=== PATIENT | female | born 1970 | race African-American/Black ===

== ENCOUNTER → 2016-10-18 | Outpatient (CLI) | payer OTHER ==
--- NOTE | ~2016-10-18 | CR127 ---
[facility]. [facility] A Service of [facility] & [facility] RADIOLOGY TEXT RESULTS PATIENT: ANU ACUNA LOCATION: [facility] : 70 UNIT #: [id number] AGE: [address]: Gilmar Hook MD SEX: F ORDER DR: [id number] [address] [address] [id number] O MR#: [id number] Acc #: [id number] NAME: ANU ACUNA : 1970 SEX: F STUDY DATE/TIME: 10/18/2016 11:46 UNIT: [facility] ROOM: STUDY DESCRIPTION: CR Foot Complete Min 3 View Rt Attending Physician: Gilmar Hook M.D. Referring Physician: Gilmar Hook M.D. Ordering Physician: Gilmar Hook M.D. Primary Care Physician: Gilmar Hook M.D. MEDICAL IMAGING REPORT This report is preliminary unless electronic signature is present. EXAM Right foot, 3 views. HISTORY 46-year-old female with right foot pain for 8 months. COMPARISON STUDIES No comparisons. FINDINGS Minimal degenerative change at the MTP joint. No fracture or dislocation. No erosive changes. Soft tissue structures are unremarkable. IMPRESSION Minimal degenerative changes at the first MTP joint. Otherwise, unremarkable. Dictated by... Josh Vidal M.D. THIS IS AN ELECTRONICALLY VERIFIED REPORT Josh Vidal M.D. at 10/19/2016 8:39 AM GAMALIEL/michael TD: 10/18/2016 19:07 JOB #: [id number] MEDICAL IMAGING REPORT Page 1 of 1
--- NOTE | ~2016-10-18 | CR126 ---
[facility]. [facility] A Service of [facility] & [facility] RADIOLOGY TEXT RESULTS PATIENT: ANU ACUNA LOCATION: [facility] : 70 UNIT #: [id number] AGE: [address]: Gilmar Hook MD SEX: F ORDER DR: [id number] [address] [address] [id number] O MR#: [id number] Acc #: [id number] NAME: ANU ACUNA : 1970 SEX: F STUDY DATE/TIME: 10/18/2016 11:46 UNIT: [facility] ROOM: STUDY DESCRIPTION: CR Foot Complete Min 3 View Lt Attending Physician: Gilmar Hook M.D. Referring Physician: Gilmar Hook M.D. Ordering Physician: Gilmar Hook M.D. Primary Care Physician: Gilmar Hook M.D. MEDICAL IMAGING REPORT This report is preliminary unless electronic signature is present. EXAM Left foot 3 views INDICATION 46-year female with left foot pain for 3 months. COMPARISON No comparisons. FINDINGS Minimal degenerative change at the first MTP joint. No evidence of fracture. No erosive changes. No dislocation. IMPRESSION Minimal degenerative change of the first MTP joint. Dictated by... Josh Vidal M.D. THIS IS AN ELECTRONICALLY VERIFIED REPORT Josh Vidal M.D. at 10/19/2016 8:39 AM GAMALIEL/tawanna TD: 10/18/2016 19:05 JOB #: [id number] MEDICAL IMAGING REPORT Page 1 of 1
--- NOTE | ~2016-10-18 | CR21 ---
[facility]. [facility] A Service of [facility] & [facility] RADIOLOGY TEXT RESULTS PATIENT: ANU ACUNA LOCATION: [facility] : 70 UNIT #: [id number] AGE: [address]: Gilmar Hook MD SEX: F ORDER DR: [id number] [address] [address] [id number] O MR#: [id number] Acc #: [id number] NAME: ANU ACUNA : 1970 SEX: F STUDY DATE/TIME: 10/18/2016 11:46 UNIT: [facility] ROOM: STUDY DESCRIPTION: CR Ankle Min 3 Views Rt Attending Physician: Gilmar Hook M.D. Referring Physician: Gilmar Hook M.D. Ordering Physician: Gilmar Hook M.D. Primary Care Physician: Gilmar Hook M.D. MEDICAL IMAGING REPORT This report is preliminary unless electronic signature is present. EXAM Right ankle, 3 views HISTORY A 46-year-old female with right ankle pain for 8 months. COMPARISON STUDIES None. FINDINGS Ankle mortis intact. No fracture or soft tissue swelling. IMPRESSION Negative. Dictated by... Josh Vidal M.D. THIS IS AN ELECTRONICALLY VERIFIED REPORT Josh Vidal M.D. at 10/19/2016 8:39 AM GAMALIEL/kendra TD: 10/18/2016 19:05 JOB #: [id number] MEDICAL IMAGING REPORT Page 1 of 1
--- NOTE | ~2016-10-18 | CR20 ---
[facility]. [facility] A Service of [facility] & [facility] & [facility] RADIOLOGY TEXT RESULTS PATIENT: ANU ACUNA LOCATION: [facility] : 70 UNIT #: [id number] AGE: [address]: Gilmar Hook MD SEX: F ORDER DR: [id number] [address] [address] [id number] O MR#: [id number] Acc #: [id number] NAME: ANU ACUNA : 1970 SEX: F STUDY DATE/TIME: 10/18/2016 11:46 UNIT: [facility] ROOM: STUDY DESCRIPTION: CR Ankle Min 3 Views Lt Attending Physician: Gilmar Hook M.D. Referring Physician: Gilmar Hook M.D. Ordering Physician: Gilmar Hook M.D. Primary Care Physician: Gilmar Hook M.D. MEDICAL IMAGING REPORT This report is preliminary unless electronic signature is present. EXAM Left ankle, 3 views HISTORY 45-year-old female. Left ankle pain for 8 months. COMPARISON No comparisons. FINDINGS Ankle mortise intact. No fracture or soft tissue swelling. IMPRESSION Negative. Dictated by... Josh Vidal M.D. THIS IS AN ELECTRONICALLY VERIFIED REPORT Josh Vidal M.D. at 10/19/2016 8:39 AM GAMALIEL/tawanna TD: 10/18/2016 19:03 JOB #: [id number] MEDICAL IMAGING REPORT Page 1 of 1
== END | disposition home or self-care (01) ==
LOC: SRAD 11:31
DX: M79.671 Pain in right foot (principal); M79.672 Pain in left foot; M25.572 Pain in left ankle and joints of left foot; M25.571 Pain in right ankle and joints of right foot
CPT/HCPCS: 73610; 73630